=== PATIENT | male | born 1960 | race Caucasian/White ===

== ENCOUNTER 2017-06-20 11:16 | Inpatient (IN) | payer OTHER ==
[~2017-06-20] VITALS: Ht 175.3 cm; Wt 84.9 kg
--- NOTE | 2017-06-20 12:13 | PHYS DOC ---
Adult General Chief Complaint Chief Complaint: NAUSEA/VOMITING/DIARRHA HPI HPI Patient is a 56 year old male presents to the emergency department stating that he has been having diarrhea for the last week. He states that he has tried Imodium [id number] with no relief. He states that within the last 24 hours he has had 3-4 diarrhea stools with pink noted within the stool. He has also vomited 3-4 times within the last 24 hours with no blood noted. Patient states he has no appetite and cannot keep anything down. He does state that he has been slightly lightheaded and dizzy. He denies any previous history of any GI bleeds in the past. He does state he's had a hernia in the past. He states that he's been having some abdominal cramping with sharp pains that go from the right lower quadrant straight to the back. He states that he has not had any fevers no, no chills. Review of Systems Review of Systems Constitutional: Denies fever or chills [] Eyes: Denies change in visual acuity, redness, or eye pain [] HENT: Denies nasal congestion or sore throat [] Respiratory: Denies cough or shortness of breath [] Cardiovascular: No additional information not addressed in HPI [] GI: abdominal pain, nausea, vomiting, pink stools or diarrhea [] : Denies dysuria or hematuria [] Musculoskeletal: Denies back pain or joint pain [] Integument: Denies rash or skin lesions [] Neurologic: Denies headache, focal weakness or sensory changes [] Endocrine: Denies polyuria or polydipsia [] Current Medications Current Medications Current Medications Medications (Trade) Dose Ordered Sig/Rios Start Time Stop Time Status Last Admin Dose Admin Dicyclomine HCl (Bentyl) 10 mg 1X ONCE 06/20/17 12:15 06/20/17 12:16 DC 06/20/17 12:37 10 MG Info (Do NOT chart on this entry -- for MONITORING) 1 each PRN DAILY PRN 06/20/17 12:30 06/22/17 12:29 Iohexol (Omnipaque 240 Mg/ml) 50 ml 1X ONCE 06/20/17 12:30 06/20/17 12:31 DC 06/20/17 12:30 50 ML Iohexol (Omnipaque 300 Mg/ml) 75 ml 1X ONCE 06/20/17 12:30 06/20/17 12:31 DC 06/20/17 13:31 75 ML Ondansetron HCl (Zofran) 4 mg 1X ONCE 06/20/17 12:15 06/20/17 12:16 DC 06/20/17 12:36 4 MG Sodium Chloride 1,000 ml @ 1,000 mls/hr 1X ONCE 06/20/17 12:15 06/20/17 13:14 DC 06/20/17 12:36 1,000 MLS/HR Allergies Allergies Allergies Coded Allergies Type Severity Reaction Last Updated Verified aspirin Allergy Unknown 06/20/17 No Physical Exam Physical Exam Constitutional: Well developed, well nourished, no acute distress, non-toxic appearance. [] HENT: Normocephalic, atraumatic, bilateral external ears normal, oropharynx moist, no oral exudates, nose normal. [] Eyes: PERRLA, EOMI, conjunctiva normal, no discharge. [] Neck: Normal range of motion, no tenderness, supple, no stridor. [] Cardiovascular:Heart rate regular rhythm, no murmur [] Lungs & Thorax: Bilateral breath sounds clear to auscultation [] Abdomen: Bowel sounds hypoactive, soft, RUQ and RLQ tenderness, no masses, no pulsatile masses. no rebound tenderness noted, no guarding noted. Skin: Warm, dry, no erythema, no rash. [] Back: No tenderness Extremities: No tenderness, no cyanosis, no clubbing, ROM intact, no edema. [] Neurologic: Alert and oriented X 3, normal motor function, normal sensory function, no focal deficits noted. [] Psychologic: Affect normal, judgement normal, mood normal. [] Current Patient Data Vital Signs Vital Signs Date Time Temp Pulse Resp B/P (MAP) Pulse Ox O2 Delivery O2 Flow Rate FiO2 06/20/17 11:50 98.4 102 20 137/72 (93) 95 Room Air 98.4 Lab Values Laboratory Tests Test 06/20/17 12:02 06/20/17 12:25 Stool Occult Blood Negative (NEG) White Blood Count 14.5 x10^3/uL (4.0-11.0) H Red Blood Count 5.34 x10^6/uL (4.30-5.70) Hemoglobin 15.8 g/dL (13.0-17.5) Hematocrit 45.7 % (39.0-53.0) Mean Corpuscular Volume 86 fL (79-100) Mean Corpuscular Hemoglobin 30 pg (25-35) Mean Corpuscular Hemoglobin Concent 35 g/dL (31-37) Red Cell Distribution Width 12.6 % (11.5-14.5) Platelet Count 319 x10^3/uL (140-400) Neutrophils (%) (Auto) 81 % (31-73) H Lymphocytes (%) (Auto) 5 % (24-48) L Monocytes (%) (Auto) 14 % (0-9) H Eosinophils (%) (Auto) 0 % (0-3) Basophils (%) (Auto) 0 % (0-3) Neutrophils # (Auto) 11.8 x10^3uL (1.8-7.7) H Lymphocytes # (Auto) 0.6 x10^3/uL (1.0-4.8) L Monocytes # (Auto) 2.0 x10^3/uL (0.0-1.1) H Eosinophils # (Auto) 0.0 x10^3/uL (0.0-0.7) Basophils # (Auto) 0.0 x10^3/uL (0.0-0.2) Segmented Neutrophils % 80 % (35-66) H Band Neutrophils % 1 % (0-9) Lymphocytes % 10 % (24-48) L Monocytes % 9 % (0-10) Platelet Estimate Adequate (ADEQUATE) Sodium Level 134 mmol/L (136-145) L Potassium Level 4.0 mmol/L (3.5-5.1) Chloride Level 97 mmol/L (98-107) L Carbon Dioxide Level 26 mmol/L (21-32) Anion Gap 11 (6-14) Blood Urea Nitrogen 11 mg/dL (8-26) Creatinine 1.1 mg/dL (0.7-1.3) Estimated GFR (Cockcroft-Gault) 69.8 BUN/Creatinine Ratio 10 (6-20) Glucose Level 138 mg/dL (70-99) H Calcium Level 9.0 mg/dL (8.5-10.1) Total Bilirubin 0.6 mg/dL (0.2-1.0) Aspartate Amino Transferase (AST) 12 U/L (15-37) L Alanine Aminotransferase (ALT) 22 U/L (16-63) Alkaline Phosphatase 60 U/L (46-116) Total Protein 7.4 g/dL (6.4-8.2) Albumin 3.3 g/dL (3.4-5.0) L Albumin/Globulin Ratio 0.8 (1.0-1.7) L Laboratory Tests 06/20/17 12:25 Laboratory Tests 06/20/17 12:25 EKG EKG [] Radiology/Procedures Radiology/Procedures [][facility] [address] [place] [address] IMAGING REPORT Signed PATIENT: HI ELAINE ACCOUNT: [id number] : 1960 LOCATION: ER AGE: 56 SEX: M EXAM STATUS: REG ER ORD. PHYSICIAN: ED ZAVALA APRN REASON: vomting and diarrhea, abdominal pain 1 week PROCEDURE: CT ABD PELV W/ORAL&IV CONTRAST CT of the abdomen and pelvis with contrast, 06/20/2017: History: Abdominal pain, nausea and vomiting with diarrhea Multidetector CT imaging was performed following oral and IV administration of contrast. There is mild bibasilar atelectasis. The liver is unremarkable. No gallbladder abnormality is seen. The pancreas is unremarkable. There is a 3.5 cm cyst in the spleen. The kidneys are unremarkable. There is mild aortoiliac calcific plaquing without evidence of aneurysm. No abdominal or pelvic adenopathy is seen. The prostate gland is enlarged measuring 5.7 cm in width. Several prostatic calcifications are noted. There is moderate colonic mural thickening most prominent at the level of the right colon and transverse colon. No pneumatosis is evident. There is mild streaky paracolic inflammation in both paracolic gutters. A few small sigmoid diverticula are present. No focal paracolonic fluid collection is seen. The appendix is visualized and is unremarkable. The bowel loops are not dilated. The terminal ileum is unremarkable. No free air is seen in the abdomen or pelvis. There appears to be a trace amount of free fluid in the pelvis. IMPRESSION: 1. Moderate colonic mural thickening compatible with colitis. This may be infectious, although ischemia or inflammatory bowel disease cannot be excluded. 2. Mild sigmoid diverticulosis. 3. Nonspecific prostatic enlargement. PQRS Compliance Statement: One or more of the following individualized dose reduction techniques were utilized for this examination: 1. Automated exposure control 2. Adjustment of the mA and/or kV according to patient size 3. Use of iterative reconstruction technique DICTATED and SIGNED BY: MARICHUY LOREDO MD DATE: 06/20/17 [id number] CC: ED ZAVALA APRN; NO PCP ~ Course & Med Decision Making Course & Med Decision Making Pertinent Labs and Imaging studies reviewed. (See chart for details) Patient's CT results identify diverticulosis as well as colitis. Patient will be admitted into the hospital per Dr. Page. With recommendations to have a consult with GI Dr. Guzman. Patient will be provided with IV antibiotics. He' ll be nothing by mouth except for ice chips at this time. Patient was provided with lab results and CT results. [] Dragon Disclaimer Dragon Disclaimer This electronic medical record was generated, in whole or in part, using a voice recognition dictation system. Departure Departure Impression: Primary Impression: Abdominal pain Disposition: ADMITTED INPATIENT Admitting Physician: Karlee Page Condition: STABLE DE ZAVALA APRN Jun 20, 2017 12:13
[2017-06-20] MEDS ORDERED: ONDANSETRON PF 4 MG/2 ML VIAL. IV ONE (12:15)
[2017-06-20] MEDS ORDERED: DICYCLOMINE 20 MG/2 ML AMPUL. IM ONE (12:15)
[2017-06-20] MEDS ORDERED: IV NORMAL SALINE 1000ML BAG 1,000 ML IV ONE (12:15)
[2017-06-20] MEDS ORDERED: CONTRAST GIVEN MC PRN (12:30)
[2017-06-20] MEDS ORDERED: IOHEXOL 240 MG/ML 50ML VIAL. PO ONE (12:30)
[2017-06-20] MEDS ORDERED: IOHEXOL 300 MG/ML 75 ML VIAL IV ONE (12:30)
[2017-06-20 12:33] LABS: NEG OBC FOB NEG; POS OBC FOB POS
[2017-06-20 12:37] LABS: BASO % 0 % (0-3); EOS % 0 % (0-3); HEMATOCRIT 45.7 % (39.0-53.0); HEMOGLOBIN 15.8 g/dL (13.0-17.5); LYMPH # 0.6 x10^3/uL (1.0-4.8); LYMPH % 5 % (24-48); MEAN CORPUSCULAR HEMOGLOBIN 30 pg (25-35); MEAN CORPUSCULAR HGB CONC 35 g/dL (31-37); MEAN CORPUSCULAR VOLUME 86 fL (79-100); MONO % 14 % (0-9); NEUT % 81 % (31-73); PLATELET COUNT 319 x10^3/uL (140-400); RED BLOOD COUNT 5.34 x10^6/uL (4.30-5.70); RED CELL DISTRIBUTION WIDTH 12.6 % (11.5-14.5); WHITE BLOOD COUNT 14.5 x10^3/uL (4.0-11.0)
[2017-06-20 12:56] LABS: CREATININE 1.1 mg/dL (0.7-1.3); GFR 69.8
[2017-06-20 13:00] LABS: ALBUMIN 3.3 g/dL (3.4-5.0); ALBUMIN/GLOBULIN RATIO 0.8 (1.0-1.7); TOTAL BILIRUBIN 0.6 mg/dL (0.2-1.0); TOTAL PROTEIN 7.4 g/dL (6.4-8.2)
[2017-06-20 13:57] LABS: PLT ESTIMATE ADEQUATE (ADEQUATE)
--- NOTE | 2017-06-20 13:59 | RAD ---
CT of the abdomen and pelvis with contrast, 06/20/2017: History: Abdominal pain, nausea and vomiting with diarrhea Multidetector CT imaging was performed following oral and IV administration of contrast. There is mild bibasilar atelectasis. The liver is unremarkable. No gallbladder abnormality is seen. The pancreas is unremarkable. There is a 3.5 cm cyst in the spleen. The kidneys are unremarkable. There is mild aortoiliac calcific plaquing without evidence of aneurysm. No abdominal or pelvic adenopathy is seen. The prostate gland is enlarged measuring 5.7 cm in width. Several prostatic calcifications are noted. There is moderate colonic mural thickening most prominent at the level of the right colon and transverse colon. No pneumatosis is evident. There is mild streaky paracolic inflammation in both paracolic gutters. A few small sigmoid diverticula are present. No focal paracolonic fluid collection is seen. The appendix is visualized and is unremarkable. The bowel loops are not dilated. The terminal ileum is unremarkable. No free air is seen in the abdomen or pelvis. There appears to be a trace amount of free fluid in the pelvis. IMPRESSION: 1. Moderate colonic mural thickening compatible with colitis. This may be infectious, although ischemia or inflammatory bowel disease cannot be excluded. 2. Mild sigmoid diverticulosis. 3. Nonspecific prostatic enlargement. PQRS Compliance Statement: One or more of the following individualized dose reduction techniques were utilized for this examination: 1. Automated exposure control 2. Adjustment of the mA and/or kV according to patient size 3. Use of iterative reconstruction technique
[2017-06-20] MEDS ORDERED: ONDANSETRON PF 4 MG/2 ML VIAL. IV PRN (14:45)
--- NOTE | 2017-06-20 14:53 | ACF ---
Admit Criteria Forms Admit Criteria Forms Admit Criteria Forms ABDOMINAL PAIN Clinical Indications for Admission to Inpatient Care ( [place]/check or initial the applicable condition/criteria): Admission is indicated for ANY ONE of the following (1)(2)(3)(4)(5)(6): [ ]I. Surgery needed that cannot be performed on ambulatory basis [ ]II. Peritoneal signs present (eg, rebound tenderness, rigidity) [ ]III. Evaluation requires patient to not eat or drink for extended period ( eg, more than 24 hours). [X ]IV. Inpatient admission required[B] rather than observation care (see Abdominal Pain: Observation Care guideline as appropriate) because of ANY ONE of the following(7)(8)(9): [ ] a) Hemodynamic instability [ ]b) Severe pain requiring acute inpatient management [X ]c) Identification of etiology or finding that requires inpatient care (eg, aortic dissection, free air,bowel ischemia)(10) [ ]d) Absent bowel sounds with complete ileus (11) [ ]e) Signs of intestinal obstruction[C] [ ]f) Suspected toxic megacolon [ ]g) Severe electrolyte abnormalities requiring inpatient care [ ]h) High fever or infection requiring inpatient admission as indicated by ANY ONE of the following (12)(13): [ ]i) Appropriate outpatient or observation care antimicrobial treatment unavailable, not effective, or not feasible [ ]ii) Documented bacteremia [ ]iii) Temperature greater than 104.9 degrees F (40.5 degrees C) (oral) [ ]iv) Temperature greater than 103.1 degrees F (39.5 degrees C) ( oral) or less than 96.8 degrees F (36 degrees C) (rectal) that does not respond to all emergency treatment measures [ ]i) IV fluid required rather than oral rehydration to replace significant ongoing (eg, for greater than 24 hours) losses (greater than 3 L/m2 per day)(14)(15) [ ]j) Percutaneous or open drainage (eg, abscess, biliary tract) procedures [ ]k) Parenteral nutrition regimen that must be implemented on inpatient basis [ ]l) Other condition, treatment, or monitoring requiring inpatient admission Extended stay beyond goal length of stay may be needed for (1)(3)(4)(10)(16): [ ]a) Surgery (e.g., colectomy, revascularization procedure) [ ]b) Persistent abdominal pain with suspected intra-abdominal process [ ]c) Diagnosed condition requiring continued stay (e.g., pancreatitis, complicated diverticulitis) The original [facility] [employer] content created by [facility] has been revised. The portions of the content which have been revised are identified through the use of italic text, and [facility] has neither reviewed nor approved the modified material.All other unmodified content is copyright [facility]. Please see references footnoted in the original [facility] [employer] edition 2014 ROBIN DALY Jun 20, 2017 14:53
[2017-06-20] MEDS ORDERED: CIPROFLOXACIN 400MG PREMIX 200 ML IV ONE (15:00)
[2017-06-20] MEDS: IV NORMAL SALINE 1000ML BAG 1,000 ML IV SCH ×2 (15:03→22:50)
--- NOTE | 2017-06-20 15:56 | PDOC2 ---
GI CONSULT Reason For Consult: Abd pain HPI: HPI: 56 y/o male admitted through ER. Has been ill for 1 week w/ diarrhea (1-2 watery stools every hour, keeps him awake) w/ lower abdominal cramping ( improved after stooling or passing gas) and n/v. Stools have looked yellow, white, mucousy, and occasionally pink. Tried Pepto and Imodium w/o improvement. Recently started on atbx for dental infection, also traveled to [place] a couple months ago to visit family. Rare reflux when upset/stressed. No previous EGD or colonoscopy. No NSAID use. Labs significant for WBC 14.5 and fecal occult negative. CT shows diffuse mural thickening c/w colitis, also note sigmoid diverticulosis. Started on Flagyl, also given Bentyl. Stool culture ordered. PMH: PMH: hemorrhoids, diverticulosis, bilateral inguinal hernia repair FH: Family History: No pertinent hx (denies GI cancers) Social History: Smoke: No ALCOHOL: occassional Drugs: None ROS: GEN: Denies fevers, chills, sweats HEENT: Denies blurred vision, sore throat CV: Denies chest pain RESP: Denies shortness of air, cough GI: Per HPI : Denies hematuria, dysuria ENDO: Denies weight changes NEURO: Denies confusion, dizziness MSK: Denies weakness, joint pain/swelling SKIN: Denies jaundice, pruritus Vitals: Vitals: Vital Signs Date Time Temp Pulse Resp B/P (MAP) Pulse Ox O2 Delivery O2 Flow Rate FiO2 06/20/17 14:25 93 119/72 (88) 06/20/17 14:06 97 Room Air 06/20/17 13:25 20 06/20/17 11:50 98.4 98.4 Labs: Labs: Laboratory Tests Test 06/20/17 12:02 06/20/17 12:25 Stool Occult Blood Negative (NEG) White Blood Count 14.5 x10^3/uL (4.0-11.0) Red Blood Count 5.34 x10^6/uL (4.30-5.70) Hemoglobin 15.8 g/dL (13.0-17.5) Hematocrit 45.7 % (39.0-53.0) Mean Corpuscular Volume 86 fL (79-100) Mean Corpuscular Hemoglobin 30 pg (25-35) Mean Corpuscular Hemoglobin Concent 35 g/dL (31-37) Red Cell Distribution Width 12.6 % (11.5-14.5) Platelet Count 319 x10^3/uL (140-400) Neutrophils (%) (Auto) 81 % (31-73) Lymphocytes (%) (Auto) 5 % (24-48) Monocytes (%) (Auto) 14 % (0-9) Eosinophils (%) (Auto) 0 % (0-3) Basophils (%) (Auto) 0 % (0-3) Neutrophils # (Auto) 11.8 x10^3uL (1.8-7.7) Lymphocytes # (Auto) 0.6 x10^3/uL (1.0-4.8) Monocytes # (Auto) 2.0 x10^3/uL (0.0-1.1) Eosinophils # (Auto) 0.0 x10^3/uL (0.0-0.7) Basophils # (Auto) 0.0 x10^3/uL (0.0-0.2) Segmented Neutrophils % 80 % (35-66) Band Neutrophils % 1 % (0-9) Lymphocytes % 10 % (24-48) Monocytes % 9 % (0-10) Platelet Estimate Adequate (ADEQUATE) Sodium Level 134 mmol/L (136-145) Potassium Level 4.0 mmol/L (3.5-5.1) Chloride Level 97 mmol/L (98-107) Carbon Dioxide Level 26 mmol/L (21-32) Anion Gap 11 (6-14) Blood Urea Nitrogen 11 mg/dL (8-26) Creatinine 1.1 mg/dL (0.7-1.3) Estimated GFR (Cockcroft-Gault) 69.8 BUN/Creatinine Ratio 10 (6-20) Glucose Level 138 mg/dL (70-99) Calcium Level 9.0 mg/dL (8.5-10.1) Total Bilirubin 0.6 mg/dL (0.2-1.0) Aspartate Amino Transf (AST/SGOT) 12 U/L (15-37) Alanine Aminotransferase (ALT/SGPT) 22 U/L (16-63) Alkaline Phosphatase 60 U/L (46-116) Total Protein 7.4 g/dL (6.4-8.2) Albumin 3.3 g/dL (3.4-5.0) Albumin/Globulin Ratio 0.8 (1.0-1.7) Allergies: Coded Allergies: aspirin (Unverified Allergy, Unknown, 06/20/17) "REALLY DEHYDRATED" Medications: Current Medications Medications (Trade) Dose Ordered Sig/Rios Route PRN Reason Start Time Stop Time Status Last Admin Dose Admin Sodium Chloride 1,000 ml @ 1,000 mls/hr 1X ONCE IV 06/20/17 12:15 06/20/17 13:14 DC 06/20/17 12:36 Dicyclomine HCl (Bentyl) 10 mg 1X ONCE IM 06/20/17 12:15 06/20/17 12:16 DC 06/20/17 12:37 Ondansetron HCl (Zofran) 4 mg 1X ONCE IV 06/20/17 12:15 06/20/17 12:16 DC 06/20/17 12:36 Iohexol (Omnipaque 300 Mg/ml) 75 ml 1X ONCE IV 06/20/17 12:30 06/20/17 12:31 DC 06/20/17 13:31 Iohexol (Omnipaque 240 Mg/ml) 50 ml 1X ONCE PO 06/20/17 12:30 06/20/17 12:31 DC 06/20/17 12:30 Sodium Chloride 1,000 ml @ 125 mls/hr Q8H IV 06/20/17 14:37 06/21/17 14:36 06/20/17 15:03 Metronidazole 100 ml @ 100 mls/hr 1X ONCE IV 06/20/17 14:45 06/20/17 15:44 DC 06/20/17 15:03 Imaging: Imaging: CT A/P w/ oral and IV contrast IMPRESSION: 1. Moderate colonic mural thickening compatible with colitis. This may be infectious, although ischemia or inflammatory bowel disease cannot be excluded. 2. Mild sigmoid diverticulosis. 3. Nonspecific prostatic enlargement. PE: GEN: NAD HEENT: Atraumatic, PERRL LUNGS: CTAB HEART: RRR ABD: hyperactive BS, S/ND, not particularly tender EXTREMITY: No edema SKIN: No rashes, no jaundice NEURO/PSYCH: A & O 3 A/P: A/P: Diarrhea, n/v, abd pain -onset 1 week ago, possibly precipitated by atbx use Abnormal CT A/P -c/w colitis Leukocytosis CRC screen -no previous colonoscopy -- Stool culture ordered, add C Diff considering atbx use. Consider vanc if not improving w/ metronidazole. Try clear liquids. Screening colonoscopy as outpt. TANVIR JOHNSON Jun 20, 2017 15:56
[2017-06-20 19:00] VITALS: BP 112/62
[2017-06-20] MEDS: DICYCLOMINE HCL 10 MG CAPSULE PO PRN (20:34)
[2017-06-20] MEDS: SIMETHICONE 80 MG TAB.CHEW PO PRN (22:49)
[2017-06-20 23:00] VITALS: BP 107/59
--- NOTE | 2017-06-21 00:01 | HP ---
ADMIT DATE: 06/20/2017 CHIEF COMPLAINT: Nausea, vomiting, diarrhea. HISTORY OF PRESENT ILLNESS: The patient is a pleasant 56-year-old healthy male who presented with nausea, vomiting, diarrhea. We did a CAT scan in the ER showing colitis. I have discussed the case with the ER physician. We are going to admit the patient with consultation to GI and on IV Cipro and IV Levaquin. PAST MEDICAL HISTORY: Benign. ALLERGIES: ASPIRIN. FAMILY HISTORY: He denies any colon cancer in the family. SOCIAL HISTORY: He does not drink, smoke or take drugs. He works at [employer]. MEDICATIONS: Reviewed, please refer to the MRAD. REVIEW OF SYSTEMS: GENERAL: No history of weight change, weakness or fevers. SKIN: No bruising, hair changes or rashes. EYES: No blurred, double or loss of vision. NOSE AND THROAT: No history of nosebleeds, hoarseness or sore throat. HEART: No history of palpitations, chest pain or shortness of breath on exertion. LUNGS: Denies cough, hemoptysis, wheezing or shortness of breath. GASTROINTESTINAL: Denies changes in appetite or constipation. He complains of abdominal pain. GENITOURINARY: No history of frequency, urgency, hesitancy or nocturia. NEUROLOGIC: Denies history of numbness, tingling, tremor or weakness. PSYCHIATRIC: No history of panic, anxiety or depression. ENDOCRINE: No history of heat or cold intolerance, polyuria or polydipsia. EXTREMITIES: Denies muscle weakness, joint pain, pain on walking or stiffness. PHYSICAL EXAMINATION: VITAL SIGNS: Temperature afebrile, pulse 62, respirations 18, blood pressure 119/72. GENERAL: He is alert, cooperative. HEART: Normal S1, S2. LUNGS: Clear. ABDOMEN: Soft, decreased bowel sounds, tender. EXTREMITIES: Trace edema. SKIN: No rashes. PSYCHIATRIC: He is anxious. VASCULAR: Good capillary refill. ENDOCRINE: No thyromegaly. LYMPHATICS: No cervical nodes. HEMATOPOIETIC: No bruising. LABORATORY DATA: White count 14, hemoglobin 15.8, platelets 319. Electrolytes: Sodium 134, potassium 4, chloride 97, bicarbonate 26, BUN 11, creatinine 1, glucose 130. ASSESSMENT AND PLAN: Colitis. The patient has been admitted. We will consult Gastroenterology. IV Cipro, IV Flagyl. Continue his home medicines. ARONL Delroy SORTO DO DR: Ryan JOB#: [id number] / [id number]
[2017-06-21] MEDS: HYDROcodone/APAP 5/325MG 1 TAB TABLET PO PRN ×4 (02:14→20:47)
[2017-06-21 05:04] LABS: BASO % 0 % (0-3); EOS % 1 % (0-3); HEMATOCRIT 38.9 % (39.0-53.0); HEMOGLOBIN 13.2 g/dL (13.0-17.5); LYMPH % 9 % (24-48); MEAN CORPUSCULAR HEMOGLOBIN 29 pg (25-35); MEAN CORPUSCULAR HGB CONC 34 g/dL (31-37); MEAN CORPUSCULAR VOLUME 86 fL (79-100); MONO % 12 % (0-9); NEUT % 77 % (31-73); PLATELET COUNT 286 x10^3/uL (140-400); RED BLOOD COUNT 4.53 x10^6/uL (4.30-5.70); RED CELL DISTRIBUTION WIDTH 12.8 % (11.5-14.5); WHITE BLOOD COUNT 11.1 x10^3/uL (4.0-11.0)
[2017-06-21 05:33] LABS: CALCIUM 8.4 mg/dL (8.5-10.1); CREATININE 0.7 mg/dL (0.7-1.3); GFR 117.5; POTASSIUM 3.6 mmol/L (3.5-5.1)
[2017-06-21 06:49] VITALS: BP 98/66
[2017-06-21 07:00] VITALS: BP 93/64
[2017-06-21] MEDS: DICYCLOMINE HCL 10 MG CAPSULE PO PRN ×3 (08:36→20:49)
[2017-06-21] MEDS: SIMETHICONE 80 MG TAB.CHEW PO PRN ×2 (08:36→20:48)
[2017-06-21] MEDS ORDERED: CIPROFLOXACIN 400MG PREMIX 200 ML IV SCH (09:00)
[2017-06-21] MEDS: IV NORMAL SALINE 1000ML BAG 1,000 ML IV SCH (10:37)
[2017-06-21 11:22] VITALS: BP 113/62
--- NOTE | 2017-06-21 11:32 | PDOC ---
G I PROGRESS NOTE Subjective No nausea or vomiting today. Tolerating clears. Still with diarrhea. Physical Exam Lungs clear. RRR Abdomen soft with mild diffuse tenderness. Review of Relevant I have reviewed the following items sharee (where applicable) has been applied. Labs Laboratory Tests Test 06/20/17 12:02 06/20/17 12:25 06/21/17 04:10 Stool Occult Blood Negative (NEG) White Blood Count 14.5 x10^3/uL (4.0-11.0) 11.1 x10^3/uL (4.0-11.0) Red Blood Count 5.34 x10^6/uL (4.30-5.70) 4.53 x10^6/uL (4.30-5.70) Hemoglobin 15.8 g/dL (13.0-17.5) 13.2 g/dL (13.0-17.5) Hematocrit 45.7 % (39.0-53.0) 38.9 % (39.0-53.0) Mean Corpuscular Volume 86 fL (79-100) 86 fL (79-100) Mean Corpuscular Hemoglobin 30 pg (25-35) 29 pg (25-35) Mean Corpuscular Hemoglobin Concent 35 g/dL (31-37) 34 g/dL (31-37) Red Cell Distribution Width 12.6 % (11.5-14.5) 12.8 % (11.5-14.5) Platelet Count 319 x10^3/uL (140-400) 286 x10^3/uL (140-400) Neutrophils (%) (Auto) 81 % (31-73) 77 % (31-73) Lymphocytes (%) (Auto) 5 % (24-48) 9 % (24-48) Monocytes (%) (Auto) 14 % (0-9) 12 % (0-9) Eosinophils (%) (Auto) 0 % (0-3) 1 % (0-3) Basophils (%) (Auto) 0 % (0-3) 0 % (0-3) Neutrophils # (Auto) 11.8 x10^3uL (1.8-7.7) 8.6 x10^3uL (1.8-7.7) Lymphocytes # (Auto) 0.6 x10^3/uL (1.0-4.8) 1.0 x10^3/uL (1.0-4.8) Monocytes # (Auto) 2.0 x10^3/uL (0.0-1.1) 1.3 x10^3/uL (0.0-1.1) Eosinophils # (Auto) 0.0 x10^3/uL (0.0-0.7) 0.1 x10^3/uL (0.0-0.7) Basophils # (Auto) 0.0 x10^3/uL (0.0-0.2) 0.0 x10^3/uL (0.0-0.2) Segmented Neutrophils % 80 % (35-66) Band Neutrophils % 1 % (0-9) Lymphocytes % 10 % (24-48) Monocytes % 9 % (0-10) Platelet Estimate Adequate (ADEQUATE) Sodium Level 134 mmol/L (136-145) 138 mmol/L (136-145) Potassium Level 4.0 mmol/L (3.5-5.1) 3.6 mmol/L (3.5-5.1) Chloride Level 97 mmol/L (98-107) 103 mmol/L (98-107) Carbon Dioxide Level 26 mmol/L (21-32) 25 mmol/L (21-32) Anion Gap 11 (6-14) 10 (6-14) Blood Urea Nitrogen 11 mg/dL (8-26) 9 mg/dL (8-26) Creatinine 1.1 mg/dL (0.7-1.3) 0.7 mg/dL (0.7-1.3) Estimated GFR (Cockcroft-Gault) 69.8 117.5 BUN/Creatinine Ratio 10 (6-20) Glucose Level 138 mg/dL (70-99) 132 mg/dL (70-99) Calcium Level 9.0 mg/dL (8.5-10.1) 8.4 mg/dL (8.5-10.1) Total Bilirubin 0.6 mg/dL (0.2-1.0) Aspartate Amino Transf (AST/SGOT) 12 U/L (15-37) Alanine Aminotransferase (ALT/SGPT) 22 U/L (16-63) Alkaline Phosphatase 60 U/L (46-116) Total Protein 7.4 g/dL (6.4-8.2) Albumin 3.3 g/dL (3.4-5.0) Albumin/Globulin Ratio 0.8 (1.0-1.7) Laboratory Tests Test 06/20/17 12:02 06/20/17 12:25 06/21/17 04:10 Stool Occult Blood Negative (NEG) White Blood Count 14.5 x10^3/uL (4.0-11.0) 11.1 x10^3/uL (4.0-11.0) Red Blood Count 5.34 x10^6/uL (4.30-5.70) 4.53 x10^6/uL (4.30-5.70) Hemoglobin 15.8 g/dL (13.0-17.5) 13.2 g/dL (13.0-17.5) Hematocrit 45.7 % (39.0-53.0) 38.9 % (39.0-53.0) Mean Corpuscular Volume 86 fL (79-100) 86 fL (79-100) Mean Corpuscular Hemoglobin 30 pg (25-35) 29 pg (25-35) Mean Corpuscular Hemoglobin Concent 35 g/dL (31-37) 34 g/dL (31-37) Red Cell Distribution Width 12.6 % (11.5-14.5) 12.8 % (11.5-14.5) Platelet Count 319 x10^3/uL (140-400) 286 x10^3/uL (140-400) Neutrophils (%) (Auto) 81 % (31-73) 77 % (31-73) Lymphocytes (%) (Auto) 5 % (24-48) 9 % (24-48) Monocytes (%) (Auto) 14 % (0-9) 12 % (0-9) Eosinophils (%) (Auto) 0 % (0-3) 1 % (0-3) Basophils (%) (Auto) 0 % (0-3) 0 % (0-3) Neutrophils # (Auto) 11.8 x10^3uL (1.8-7.7) 8.6 x10^3uL (1.8-7.7) Lymphocytes # (Auto) 0.6 x10^3/uL (1.0-4.8) 1.0 x10^3/uL (1.0-4.8) Monocytes # (Auto) 2.0 x10^3/uL (0.0-1.1) 1.3 x10^3/uL (0.0-1.1) Eosinophils # (Auto) 0.0 x10^3/uL (0.0-0.7) 0.1 x10^3/uL (0.0-0.7) Basophils # (Auto) 0.0 x10^3/uL (0.0-0.2) 0.0 x10^3/uL (0.0-0.2) Segmented Neutrophils % 80 % (35-66) Band Neutrophils % 1 % (0-9) Lymphocytes % 10 % (24-48) Monocytes % 9 % (0-10) Platelet Estimate Adequate (ADEQUATE) Sodium Level 134 mmol/L (136-145) 138 mmol/L (136-145) Potassium Level 4.0 mmol/L (3.5-5.1) 3.6 mmol/L (3.5-5.1) Chloride Level 97 mmol/L (98-107) 103 mmol/L (98-107) Carbon Dioxide Level 26 mmol/L (21-32) 25 mmol/L (21-32) Anion Gap 11 (6-14) 10 (6-14) Blood Urea Nitrogen 11 mg/dL (8-26) 9 mg/dL (8-26) Creatinine 1.1 mg/dL (0.7-1.3) 0.7 mg/dL (0.7-1.3) Estimated GFR (Cockcroft-Gault) 69.8 117.5 BUN/Creatinine Ratio 10 (6-20) Glucose Level 138 mg/dL (70-99) 132 mg/dL (70-99) Calcium Level 9.0 mg/dL (8.5-10.1) 8.4 mg/dL (8.5-10.1) Total Bilirubin 0.6 mg/dL (0.2-1.0) Aspartate Amino Transf (AST/SGOT) 12 U/L (15-37) Alanine Aminotransferase (ALT/SGPT) 22 U/L (16-63) Alkaline Phosphatase 60 U/L (46-116) Total Protein 7.4 g/dL (6.4-8.2) Albumin 3.3 g/dL (3.4-5.0) Albumin/Globulin Ratio 0.8 (1.0-1.7) C.diff assay pending. Medications Current Medications Sodium Chloride 1,000 ml @ 1,000 mls/hr 1X ONCE IV Last administered on 12:36; Start 06/20/17 at 12:15; Stop 06/20/17 at 13:14; Status DC Dicyclomine HCl (Bentyl) 10 mg 1X ONCE IM Last administered on 06/20/17 12:37 ; Start 06/20/17 at 12:15; Stop 06/20/17 at 12:16; Status DC Ondansetron HCl (Zofran) 4 mg 1X ONCE IV Last administered on 06/20/17 12:36 ; Start 06/20/17 at 12:15; Stop 06/20/17 at 12:16; Status DC Iohexol (Omnipaque 300 Mg/ml) 75 ml 1X ONCE IV Last administered on 06/20/17 13:31; Start 06/20/17 at 12:30; Stop 06/20/17 at 12:31; Status DC Iohexol (Omnipaque 240 Mg/ml) 50 ml 1X ONCE PO Last administered on 06/20/17 12:30; Start 06/20/17 at 12:30; Stop 06/20/17 at 12:31; Status DC Info (Do NOT chart on this entry -- for MONITORING) 1 each PRN DAILY PRN MC SEE COMMENTS; Start 06/20/17 at 12:30; Stop 06/22/17 at 12:29 Ondansetron HCl (Zofran) 4 mg PRN Q8HRS PRN IV NAUSEA/VOMITING; Start 06/20/17 at 14:45; Stop 06/21/17 at 14:44 Sodium Chloride 1,000 ml @ 125 mls/hr Q8H IV Last administered on 06/21/17 10 :37; Start 06/20/17 at 14:37; Stop 06/21/17 at 14:36 Dicyclomine HCl (Bentyl) 10 mg QID PRN PO cramping Last administered on 08:36; Start 06/20/17 at 14:45 Metronidazole 100 ml @ 100 mls/hr Q8HRS IV Last administered on 06/21/17 04: 46; Start 06/20/17 at 22:00 Metronidazole 100 ml @ 100 mls/hr 1X ONCE IV Last administered on 06/20/17 15:03; Start 06/20/17 at 14:45; Stop 06/20/17 at 15:44; Status DC Simethicone (Gas-X) 80 mg PRN AFTMEALHC PRN PO GAS / BLOATING Last administered on 06/21/17 08:36; Start 06/20/17 at 22:00 Acetaminophen/ Hydrocodone Bitart (Lortab 5/325) 1 tab PRN Q4HRS PRN PO MODERATE PAIN Last administered on 06/21/17 02:14; Start 06/20/17 at 22:00 Vitals/I & O Vital Sign - Last 24 Hours 06/20/17 06/20/17 06/20/17 06/20/17 11:50 12:24 12:55 13:25 Temp 98.4 98.4 Pulse 102 106 86 92 Resp 20 20 B/P (MAP) 137/72 (93) 136/63 (87) 127/72 (90) 129/72 (91) Pulse Ox 95 97 O2 Delivery Room Air Room Air 06/20/17 06/20/17 06/20/17 06/20/17 14:06 14:25 15:05 15:25 Pulse 96 93 92 98 B/P (MAP) 123/59 (80) 119/72 (88) 123/72 (89) 129/73 (91) Pulse Ox 97 96 97 O2 Delivery Room Air Room Air Room Air 06/20/17 06/20/17 06/20/17 06/21/17 19:00 19:54 23:00 02:14 Temp 97.7 98.6 97.7 98.6 Pulse 91 85 Resp 20 20 18 B/P (MAP) 112/62 (79) 107/59 (75) Pulse Ox 95 97 97 O2 Delivery Room Air Room Air Room Air Room Air 06/21/17 06/21/17 06/21/17 06:49 07:00 11:22 Temp 98.0 98.4 98.2 98.0 98.4 98.2 Pulse 72 78 85 Resp 18 18 20 B/P (MAP) 98/66 (77) 93/64 (74) 113/62 (79) Pulse Ox 97 96 94 O2 Delivery Room Air Room Air Room Air Intake and Output 06/20/17 06/20/17 06/21/17 15:00 23:00 07:00 Intake Total 1000 ml 1910 ml 510 ml Balance 1000 ml 1910 ml 510 ml Problem List Problems Medical Problems: (1) Abdominal pain Status: Acute Assessment Diarrhea; history favors C.diff. Plan of Care: Continue current Tx, Mgmt Plan of Care Note Add po vancomycin. Await pending stool studies. SYLVIE SINCLAIR MD Jun 21, 2017 11:32
[2017-06-21] MEDS ORDERED: DOCUSATE SODIUM 100 MG CAPSULE. PO PRN (13:00)
[2017-06-21] MEDS ORDERED: hydrALAZINE 20 MG/ML VIAL. IVP PRN (13:00)
[2017-06-21] MEDS ORDERED: ACETAMINOPHEN 325 MG TABLET. PO PRN (13:00)
[2017-06-21] MEDS ORDERED: ONDANSETRON PF 4 MG/2 ML VIAL. IV PRN (13:00)
[2017-06-21] MEDS ORDERED: MORPHINE SULFATE 4 MG/ML DISP.SYRIN. IV PRN (13:00)
[2017-06-21] MEDS ORDERED: traMADol 50 MG TABLET PO PRN (13:00)
--- NOTE | 2017-06-21 13:00 | PDOC ---
PROGRESS NOTES Chief Complaint Chief Complaint Diarrhea, n/v, abd pain, need to rule out cdiff SIRS with Leukocytosis recent abx with dental work low albumin, no malnutrition plan: fu with gi add vanco as per gi on cipro, flagyl iv, consider dc soon ivf clear liquid diet labs tmr pain control gi , dvt ppx History of Present Illness History of Present Illness ROS: no fever, chills, sob or chest pain no N/V cont abd pain, with multiple diarrhea wbc better, cdiff pending recent abx post dental work Vitals Vitals Vital Signs Date Time Temp Pulse Resp B/P (MAP) Pulse Ox O2 Delivery O2 Flow Rate FiO2 06/21/17 11:22 98.2 85 20 113/62 (79) 94 Room Air 98.2 Physical Exam General: Alert, Oriented X3, Cooperative Heart: Regular rate, Normal S1, Normal S2 Lungs: Clear Abdomen: Normal bowel sounds, Soft, Other (lower abd mild tenderness) Extremities: No clubbing, No cyanosis Skin: No rashes Labs LABS Laboratory Tests Test 06/21/17 04:10 White Blood Count 11.1 x10^3/uL (4.0-11.0) Red Blood Count 4.53 x10^6/uL (4.30-5.70) Hemoglobin 13.2 g/dL (13.0-17.5) Hematocrit 38.9 % (39.0-53.0) Mean Corpuscular Volume 86 fL (79-100) Mean Corpuscular Hemoglobin 29 pg (25-35) Mean Corpuscular Hemoglobin Concent 34 g/dL (31-37) Red Cell Distribution Width 12.8 % (11.5-14.5) Platelet Count 286 x10^3/uL (140-400) Neutrophils (%) (Auto) 77 % (31-73) Lymphocytes (%) (Auto) 9 % (24-48) Monocytes (%) (Auto) 12 % (0-9) Eosinophils (%) (Auto) 1 % (0-3) Basophils (%) (Auto) 0 % (0-3) Neutrophils # (Auto) 8.6 x10^3uL (1.8-7.7) Lymphocytes # (Auto) 1.0 x10^3/uL (1.0-4.8) Monocytes # (Auto) 1.3 x10^3/uL (0.0-1.1) Eosinophils # (Auto) 0.1 x10^3/uL (0.0-0.7) Basophils # (Auto) 0.0 x10^3/uL (0.0-0.2) Sodium Level 138 mmol/L (136-145) Potassium Level 3.6 mmol/L (3.5-5.1) Chloride Level 103 mmol/L (98-107) Carbon Dioxide Level 25 mmol/L (21-32) Anion Gap 10 (6-14) Blood Urea Nitrogen 9 mg/dL (8-26) Creatinine 0.7 mg/dL (0.7-1.3) Estimated GFR (Cockcroft-Gault) 117.5 Glucose Level 132 mg/dL (70-99) Calcium Level 8.4 mg/dL (8.5-10.1) Assessment and Plan Assessmemt and Plan Problems Medical Problems: (1) Abdominal pain Status: Acute Problems: Comment Review of Relevant I have reviewed the following items sharee (where applicable) has been applied. Labs Laboratory Tests Test 06/20/17 12:02 06/20/17 12:25 06/21/17 04:10 Stool Occult Blood Negative (NEG) White Blood Count 14.5 x10^3/uL (4.0-11.0) 11.1 x10^3/uL (4.0-11.0) Red Blood Count 5.34 x10^6/uL (4.30-5.70) 4.53 x10^6/uL (4.30-5.70) Hemoglobin 15.8 g/dL (13.0-17.5) 13.2 g/dL (13.0-17.5) Hematocrit 45.7 % (39.0-53.0) 38.9 % (39.0-53.0) Mean Corpuscular Volume 86 fL (79-100) 86 fL (79-100) Mean Corpuscular Hemoglobin 30 pg (25-35) 29 pg (25-35) Mean Corpuscular Hemoglobin Concent 35 g/dL (31-37) 34 g/dL (31-37) Red Cell Distribution Width 12.6 % (11.5-14.5) 12.8 % (11.5-14.5) Platelet Count 319 x10^3/uL (140-400) 286 x10^3/uL (140-400) Neutrophils (%) (Auto) 81 % (31-73) 77 % (31-73) Lymphocytes (%) (Auto) 5 % (24-48) 9 % (24-48) Monocytes (%) (Auto) 14 % (0-9) 12 % (0-9) Eosinophils (%) (Auto) 0 % (0-3) 1 % (0-3) Basophils (%) (Auto) 0 % (0-3) 0 % (0-3) Neutrophils # (Auto) 11.8 x10^3uL (1.8-7.7) 8.6 x10^3uL (1.8-7.7) Lymphocytes # (Auto) 0.6 x10^3/uL (1.0-4.8) 1.0 x10^3/uL (1.0-4.8) Monocytes # (Auto) 2.0 x10^3/uL (0.0-1.1) 1.3 x10^3/uL (0.0-1.1) Eosinophils # (Auto) 0.0 x10^3/uL (0.0-0.7) 0.1 x10^3/uL (0.0-0.7) Basophils # (Auto) 0.0 x10^3/uL (0.0-0.2) 0.0 x10^3/uL (0.0-0.2) Segmented Neutrophils % 80 % (35-66) Band Neutrophils % 1 % (0-9) Lymphocytes % 10 % (24-48) Monocytes % 9 % (0-10) Platelet Estimate Adequate (ADEQUATE) Sodium Level 134 mmol/L (136-145) 138 mmol/L (136-145) Potassium Level 4.0 mmol/L (3.5-5.1) 3.6 mmol/L (3.5-5.1) Chloride Level 97 mmol/L (98-107) 103 mmol/L (98-107) Carbon Dioxide Level 26 mmol/L (21-32) 25 mmol/L (21-32) Anion Gap 11 (6-14) 10 (6-14) Blood Urea Nitrogen 11 mg/dL (8-26) 9 mg/dL (8-26) Creatinine 1.1 mg/dL (0.7-1.3) 0.7 mg/dL (0.7-1.3) Estimated GFR (Cockcroft-Gault) 69.8 117.5 BUN/Creatinine Ratio 10 (6-20) Glucose Level 138 mg/dL (70-99) 132 mg/dL (70-99) Calcium Level 9.0 mg/dL (8.5-10.1) 8.4 mg/dL (8.5-10.1) Total Bilirubin 0.6 mg/dL (0.2-1.0) Aspartate Amino Transf (AST/SGOT) 12 U/L (15-37) Alanine Aminotransferase (ALT/SGPT) 22 U/L (16-63) Alkaline Phosphatase 60 U/L (46-116) Total Protein 7.4 g/dL (6.4-8.2) Albumin 3.3 g/dL (3.4-5.0) Albumin/Globulin Ratio 0.8 (1.0-1.7) Laboratory Tests Test 06/21/17 04:10 White Blood Count 11.1 x10^3/uL (4.0-11.0) Red Blood Count 4.53 x10^6/uL (4.30-5.70) Hemoglobin 13.2 g/dL (13.0-17.5) Hematocrit 38.9 % (39.0-53.0) Mean Corpuscular Volume 86 fL (79-100) Mean Corpuscular Hemoglobin 29 pg (25-35) Mean Corpuscular Hemoglobin Concent 34 g/dL (31-37) Red Cell Distribution Width 12.8 % (11.5-14.5) Platelet Count 286 x10^3/uL (140-400) Neutrophils (%) (Auto) 77 % (31-73) Lymphocytes (%) (Auto) 9 % (24-48) Monocytes (%) (Auto) 12 % (0-9) Eosinophils (%) (Auto) 1 % (0-3) Basophils (%) (Auto) 0 % (0-3) Neutrophils # (Auto) 8.6 x10^3uL (1.8-7.7) Lymphocytes # (Auto) 1.0 x10^3/uL (1.0-4.8) Monocytes # (Auto) 1.3 x10^3/uL (0.0-1.1) Eosinophils # (Auto) 0.1 x10^3/uL (0.0-0.7) Basophils # (Auto) 0.0 x10^3/uL (0.0-0.2) Sodium Level 138 mmol/L (136-145) Potassium Level 3.6 mmol/L (3.5-5.1) Chloride Level 103 mmol/L (98-107) Carbon Dioxide Level 25 mmol/L (21-32) Anion Gap 10 (6-14) Blood Urea Nitrogen 9 mg/dL (8-26) Creatinine 0.7 mg/dL (0.7-1.3) Estimated GFR (Cockcroft-Gault) 117.5 Glucose Level 132 mg/dL (70-99) Calcium Level 8.4 mg/dL (8.5-10.1) Medications Current Medications Sodium Chloride 1,000 ml @ 1,000 mls/hr 1X ONCE IV Last administered on 12:36; Start 06/20/17 at 12:15; Stop 06/20/17 at 13:14; Status DC Dicyclomine HCl (Bentyl) 10 mg 1X ONCE IM Last administered on 06/20/17 12:37 ; Start 06/20/17 at 12:15; Stop 06/20/17 at 12:16; Status DC Ondansetron HCl (Zofran) 4 mg 1X ONCE IV Last administered on 06/20/17 12:36 ; Start 06/20/17 at 12:15; Stop 06/20/17 at 12:16; Status DC Iohexol (Omnipaque 300 Mg/ml) 75 ml 1X ONCE IV Last administered on 06/20/17 13:31; Start 06/20/17 at 12:30; Stop 06/20/17 at 12:31; Status DC Iohexol (Omnipaque 240 Mg/ml) 50 ml 1X ONCE PO Last administered on 06/20/17 12:30; Start 06/20/17 at 12:30; Stop 06/20/17 at 12:31; Status DC Info (Do NOT chart on this entry -- for MONITORING) 1 each PRN DAILY PRN MC SEE COMMENTS; Start 06/20/17 at 12:30; Stop 06/22/17 at 12:29 Ondansetron HCl (Zofran) 4 mg PRN Q8HRS PRN IV NAUSEA/VOMITING; Start 06/20/17 at 14:45; Stop 06/21/17 at 14:44 Sodium Chloride 1,000 ml @ 125 mls/hr Q8H IV Last administered on 06/21/17 10 :37; Start 06/20/17 at 14:37; Stop 06/21/17 at 14:36 Dicyclomine HCl (Bentyl) 10 mg QID PRN PO cramping Last administered on 11:58; Start 06/20/17 at 14:45 Metronidazole 100 ml @ 100 mls/hr Q8HRS IV Last administered on 06/21/17 04: 46; Start 06/20/17 at 22:00 Metronidazole 100 ml @ 100 mls/hr 1X ONCE IV Last administered on 06/20/17 15:03; Start 06/20/17 at 14:45; Stop 06/20/17 at 15:44; Status DC Simethicone (Gas-X) 80 mg PRN AFTMEALHC PRN PO GAS / BLOATING Last administered on 06/21/17 08:36; Start 06/20/17 at 22:00 Acetaminophen/ Hydrocodone Bitart (Lortab 5/325) 1 tab PRN Q4HRS PRN PO MODERATE PAIN Last administered on 06/21/17 11:59; Start 06/20/17 at 22:00 Vitals/I & O Vital Sign - Last 24 Hours 06/20/17 06/20/17 06/20/17 06/20/17 13:25 14:06 14:25 15:05 Pulse 92 96 93 92 Resp 20 B/P (MAP) 129/72 (91) 123/59 (80) 119/72 (88) 123/72 (89) Pulse Ox 97 97 96 O2 Delivery Room Air Room Air Room Air 06/20/17 06/20/17 06/20/17 06/20/17 15:25 19:00 19:54 23:00 Temp 97.7 98.6 97.7 98.6 Pulse 98 91 85 Resp 20 20 B/P (MAP) 129/73 (91) 112/62 (79) 107/59 (75) Pulse Ox 97 95 97 O2 Delivery Room Air Room Air Room Air Room Air 06/21/17 06/21/17 06/21/17 06/21/17 02:14 06:49 07:00 11:22 Temp 98.0 98.4 98.2 98.0 98.4 98.2 Pulse 72 78 85 Resp 18 18 18 20 B/P (MAP) 98/66 (77) 93/64 (74) 113/62 (79) Pulse Ox 97 97 96 94 O2 Delivery Room Air Room Air Room Air Room Air Intake and Output 06/20/17 06/20/17 06/21/17 15:00 23:00 07:00 Intake Total 1000 ml 1910 ml 510 ml Balance 1000 ml 1910 ml 510 ml MURPHY MERA MD Jun 21, 2017 13:00
[2017-06-21] MEDS: VANCOMYCIN 125 MG/2.5 ML ORAL SOLUTION. PO SCH ×3 (13:55→20:46)
[2017-06-21] MEDS: POTASSIUM CL 20MEQ D5-0.9%NACL 1,000 ML IV SCH (13:56)
[2017-06-21 14:45] VITALS: BP 122/73
[2017-06-21] MEDS: ENOXAPARIN 40 MG/0.4 ML SYRINGE. SQ SCH (16:00)
[2017-06-21] MEDS ORDERED: VANCOMYCIN 125 MG/2.5 ML ORAL SOLUTION. PO SCH (17:00)
[2017-06-21 19:00] VITALS: BP 119/67
[2017-06-21] MEDS: FAMOTIDINE 20 MG TABLET. PO SCH (20:46)
[2017-06-21 23:00] VITALS: BP 108/52
[2017-06-22] MEDS: HYDROcodone/APAP 5/325MG 1 TAB TABLET PO PRN (02:18)
[2017-06-22] MEDS: POTASSIUM CL 20MEQ D5-0.9%NACL 1,000 ML IV SCH ×2 (02:30→16:31)
[2017-06-22 06:48] LABS: BASO # 0.1 x10^3/uL (0.0-0.2); BASO % 1 % (0-3); EOS % 3 % (0-3); HEMATOCRIT 38.2 % (39.0-53.0); LYMPH # 1.2 x10^3/uL (1.0-4.8); LYMPH % 15 % (24-48); MEAN CORPUSCULAR HEMOGLOBIN 29 pg (25-35); MEAN CORPUSCULAR HGB CONC 34 g/dL (31-37); MEAN CORPUSCULAR VOLUME 86 fL (79-100); MONO % 10 % (0-9); NEUT % 71 % (31-73); PLATELET COUNT 284 x10^3/uL (140-400); RED BLOOD COUNT 4.44 x10^6/uL (4.30-5.70); RED CELL DISTRIBUTION WIDTH 12.4 % (11.5-14.5); WHITE BLOOD COUNT 8.3 x10^3/uL (4.0-11.0)
[2017-06-22 07:00] VITALS: BP 130/74
[2017-06-22 07:11] LABS: CALCIUM 8.5 mg/dL (8.5-10.1); CREATININE 0.6 mg/dL (0.7-1.3); GFR 140.4; POTASSIUM 3.5 mmol/L (3.5-5.1)
[2017-06-22] MEDS: VANCOMYCIN 125 MG/2.5 ML ORAL SOLUTION. PO SCH ×4 (08:19→22:09)
--- NOTE | 2017-06-22 10:56 | PDOC ---
Subjective: Subjective: Watery stools every 30 min - 2 hrs. Some lower abd discomfort. Tolerating full liquids. Curious when he can go home. Objective: Objective: D/w RN. Vital Signs: Vital Signs Date Time Temp Pulse Resp B/P (MAP) Pulse Ox O2 Delivery O2 Flow Rate FiO2 06/22/17 07:00 98.4 77 18 130/74 (92) 97 Room Air 98.4 Labs: Laboratory Tests Test 06/22/17 06:20 White Blood Count 8.3 x10^3/uL Red Blood Count 4.44 x10^6/uL Hemoglobin 13.0 g/dL Hematocrit 38.2 % Mean Corpuscular Volume 86 fL Mean Corpuscular Hemoglobin 29 pg Mean Corpuscular Hemoglobin Concent 34 g/dL Red Cell Distribution Width 12.4 % Platelet Count 284 x10^3/uL Neutrophils (%) (Auto) 71 % Lymphocytes (%) (Auto) 15 % Monocytes (%) (Auto) 10 % Eosinophils (%) (Auto) 3 % Basophils (%) (Auto) 1 % Neutrophils # (Auto) 5.9 x10^3uL Lymphocytes # (Auto) 1.2 x10^3/uL Monocytes # (Auto) 0.8 x10^3/uL Eosinophils # (Auto) 0.3 x10^3/uL Basophils # (Auto) 0.1 x10^3/uL Sodium Level 139 mmol/L Potassium Level 3.5 mmol/L Chloride Level 105 mmol/L Carbon Dioxide Level 26 mmol/L Anion Gap 8 Blood Urea Nitrogen 3 mg/dL Creatinine 0.6 mg/dL Estimated GFR (Cockcroft-Gault) 140.4 Glucose Level 141 mg/dL Calcium Level 8.5 mg/dL PE: GEN: NAD LUNGS: CTAB HEART: RRR ABD: NABS, S/ND/NT NEURO/PSYCH: A & O 3 A/P: C Diff, diarrhea, lower abd discomfort Leukocytosis - resolved -- Still w/ significant diarrhea. Continue PO vanc. JACQUI. TANVIR JOHNSON Jun 22, 2017 10:56
[2017-06-22 11:00] VITALS: BP 125/76
--- NOTE | 2017-06-22 13:32 | PDOC ---
PROGRESS NOTES Chief Complaint Chief Complaint Diarrhea, n/v, abd pain, need to rule out cdiff SIRS with Leukocytosis recent abx with dental work low albumin, no malnutrition plan: fu with gi add vanco on cipro, flagyl iv, consider dc soon ivf advance diet to gi soft as per gi labs tmr pain control gi , dvt ppx History of Present Illness History of Present Illness ROS: no fever, chills, sob or chest pain no N/V, abd pain still, but better cont abd pain, with non stop diarrhea, watery wbc better, cdiff + recent abx post dental work Vitals Vitals Vital Signs Date Time Temp Pulse Resp B/P (MAP) Pulse Ox O2 Delivery O2 Flow Rate FiO2 06/22/17 11:00 97.9 86 18 125/76 (92) 95 Room Air 97.9 Physical Exam General: Alert, Oriented X3, Cooperative Heart: Regular rate, Normal S1, Normal S2 Lungs: Clear Abdomen: Normal bowel sounds, Soft, Other (lower abd mild tenderness) Extremities: No clubbing, No cyanosis Skin: No rashes Labs LABS Laboratory Tests Test 06/22/17 06:20 White Blood Count 8.3 x10^3/uL (4.0-11.0) Red Blood Count 4.44 x10^6/uL (4.30-5.70) Hemoglobin 13.0 g/dL (13.0-17.5) Hematocrit 38.2 % (39.0-53.0) Mean Corpuscular Volume 86 fL (79-100) Mean Corpuscular Hemoglobin 29 pg (25-35) Mean Corpuscular Hemoglobin Concent 34 g/dL (31-37) Red Cell Distribution Width 12.4 % (11.5-14.5) Platelet Count 284 x10^3/uL (140-400) Neutrophils (%) (Auto) 71 % (31-73) Lymphocytes (%) (Auto) 15 % (24-48) Monocytes (%) (Auto) 10 % (0-9) Eosinophils (%) (Auto) 3 % (0-3) Basophils (%) (Auto) 1 % (0-3) Neutrophils # (Auto) 5.9 x10^3uL (1.8-7.7) Lymphocytes # (Auto) 1.2 x10^3/uL (1.0-4.8) Monocytes # (Auto) 0.8 x10^3/uL (0.0-1.1) Eosinophils # (Auto) 0.3 x10^3/uL (0.0-0.7) Basophils # (Auto) 0.1 x10^3/uL (0.0-0.2) Sodium Level 139 mmol/L (136-145) Potassium Level 3.5 mmol/L (3.5-5.1) Chloride Level 105 mmol/L (98-107) Carbon Dioxide Level 26 mmol/L (21-32) Anion Gap 8 (6-14) Blood Urea Nitrogen 3 mg/dL (8-26) Creatinine 0.6 mg/dL (0.7-1.3) Estimated GFR (Cockcroft-Gault) 140.4 Glucose Level 141 mg/dL (70-99) Calcium Level 8.5 mg/dL (8.5-10.1) Assessment and Plan Assessmemt and Plan Problems Medical Problems: (1) Abdominal pain Status: Acute Problems: Comment Review of Relevant I have reviewed the following items sharee (where applicable) has been applied. Labs Laboratory Tests Test 06/20/17 15:06 06/21/17 04:10 06/22/17 06:20 Clostridium difficile Toxin (PCR) Positive (Negative) White Blood Count 11.1 x10^3/uL (4.0-11.0) 8.3 x10^3/uL (4.0-11.0) Red Blood Count 4.53 x10^6/uL (4.30-5.70) 4.44 x10^6/uL (4.30-5.70) Hemoglobin 13.2 g/dL (13.0-17.5) 13.0 g/dL (13.0-17.5) Hematocrit 38.9 % (39.0-53.0) 38.2 % (39.0-53.0) Mean Corpuscular Volume 86 fL (79-100) 86 fL (79-100) Mean Corpuscular Hemoglobin 29 pg (25-35) 29 pg (25-35) Mean Corpuscular Hemoglobin Concent 34 g/dL (31-37) 34 g/dL (31-37) Red Cell Distribution Width 12.8 % (11.5-14.5) 12.4 % (11.5-14.5) Platelet Count 286 x10^3/uL (140-400) 284 x10^3/uL (140-400) Neutrophils (%) (Auto) 77 % (31-73) 71 % (31-73) Lymphocytes (%) (Auto) 9 % (24-48) 15 % (24-48) Monocytes (%) (Auto) 12 % (0-9) 10 % (0-9) Eosinophils (%) (Auto) 1 % (0-3) 3 % (0-3) Basophils (%) (Auto) 0 % (0-3) 1 % (0-3) Neutrophils # (Auto) 8.6 x10^3uL (1.8-7.7) 5.9 x10^3uL (1.8-7.7) Lymphocytes # (Auto) 1.0 x10^3/uL (1.0-4.8) 1.2 x10^3/uL (1.0-4.8) Monocytes # (Auto) 1.3 x10^3/uL (0.0-1.1) 0.8 x10^3/uL (0.0-1.1) Eosinophils # (Auto) 0.1 x10^3/uL (0.0-0.7) 0.3 x10^3/uL (0.0-0.7) Basophils # (Auto) 0.0 x10^3/uL (0.0-0.2) 0.1 x10^3/uL (0.0-0.2) Sodium Level 138 mmol/L (136-145) 139 mmol/L (136-145) Potassium Level 3.6 mmol/L (3.5-5.1) 3.5 mmol/L (3.5-5.1) Chloride Level 103 mmol/L (98-107) 105 mmol/L (98-107) Carbon Dioxide Level 25 mmol/L (21-32) 26 mmol/L (21-32) Anion Gap 10 (6-14) 8 (6-14) Blood Urea Nitrogen 9 mg/dL (8-26) 3 mg/dL (8-26) Creatinine 0.7 mg/dL (0.7-1.3) 0.6 mg/dL (0.7-1.3) Estimated GFR (Cockcroft-Gault) 117.5 140.4 Glucose Level 132 mg/dL (70-99) 141 mg/dL (70-99) Calcium Level 8.4 mg/dL (8.5-10.1) 8.5 mg/dL (8.5-10.1) Laboratory Tests Test 06/22/17 06:20 White Blood Count 8.3 x10^3/uL (4.0-11.0) Red Blood Count 4.44 x10^6/uL (4.30-5.70) Hemoglobin 13.0 g/dL (13.0-17.5) Hematocrit 38.2 % (39.0-53.0) Mean Corpuscular Volume 86 fL (79-100) Mean Corpuscular Hemoglobin 29 pg (25-35) Mean Corpuscular Hemoglobin Concent 34 g/dL (31-37) Red Cell Distribution Width 12.4 % (11.5-14.5) Platelet Count 284 x10^3/uL (140-400) Neutrophils (%) (Auto) 71 % (31-73) Lymphocytes (%) (Auto) 15 % (24-48) Monocytes (%) (Auto) 10 % (0-9) Eosinophils (%) (Auto) 3 % (0-3) Basophils (%) (Auto) 1 % (0-3) Neutrophils # (Auto) 5.9 x10^3uL (1.8-7.7) Lymphocytes # (Auto) 1.2 x10^3/uL (1.0-4.8) Monocytes # (Auto) 0.8 x10^3/uL (0.0-1.1) Eosinophils # (Auto) 0.3 x10^3/uL (0.0-0.7) Basophils # (Auto) 0.1 x10^3/uL (0.0-0.2) Sodium Level 139 mmol/L (136-145) Potassium Level 3.5 mmol/L (3.5-5.1) Chloride Level 105 mmol/L (98-107) Carbon Dioxide Level 26 mmol/L (21-32) Anion Gap 8 (6-14) Blood Urea Nitrogen 3 mg/dL (8-26) Creatinine 0.6 mg/dL (0.7-1.3) Estimated GFR (Cockcroft-Gault) 140.4 Glucose Level 141 mg/dL (70-99) Calcium Level 8.5 mg/dL (8.5-10.1) Medications Current Medications Sodium Chloride 1,000 ml @ 1,000 mls/hr 1X ONCE IV Last administered on 12:36; Start 06/20/17 at 12:15; Stop 06/20/17 at 13:14; Status DC Dicyclomine HCl (Bentyl) 10 mg 1X ONCE IM Last administered on 06/20/17 12:37 ; Start 06/20/17 at 12:15; Stop 06/20/17 at 12:16; Status DC Ondansetron HCl (Zofran) 4 mg 1X ONCE IV Last administered on 06/20/17 12:36 ; Start 06/20/17 at 12:15; Stop 06/20/17 at 12:16; Status DC Iohexol (Omnipaque 300 Mg/ml) 75 ml 1X ONCE IV Last administered on 06/20/17 13:31; Start 06/20/17 at 12:30; Stop 06/20/17 at 12:31; Status DC Iohexol (Omnipaque 240 Mg/ml) 50 ml 1X ONCE PO Last administered on 06/20/17 12:30; Start 06/20/17 at 12:30; Stop 06/20/17 at 12:31; Status DC Info (Do NOT chart on this entry -- for MONITORING) 1 each PRN DAILY PRN MC SEE COMMENTS; Start 06/20/17 at 12:30; Stop 06/22/17 at 12:29; Status DC Ondansetron HCl (Zofran) 4 mg PRN Q8HRS PRN IV NAUSEA/VOMITING; Start 06/20/17 at 14:45; Stop 06/21/17 at 14:44; Status DC Sodium Chloride 1,000 ml @ 125 mls/hr Q8H IV Last administered on 06/21/17 10 :37; Start 06/20/17 at 14:37; Stop 06/21/17 at 14:36; Status DC Dicyclomine HCl (Bentyl) 10 mg QID PRN PO cramping Last administered on 20:49; Start 06/20/17 at 14:45 Metronidazole 100 ml @ 100 mls/hr Q8HRS IV Last administered on 06/22/17 13: 05; Start 06/20/17 at 22:00 Metronidazole 100 ml @ 100 mls/hr 1X ONCE IV Last administered on 06/20/17 15:03; Start 06/20/17 at 14:45; Stop 06/20/17 at 15:44; Status DC Simethicone (Gas-X) 80 mg PRN AFTMEALHC PRN PO GAS / BLOATING Last administered on 06/21/17 20:48; Start 06/20/17 at 22:00 Acetaminophen/ Hydrocodone Bitart (Lortab 5/325) 1 tab PRN Q4HRS PRN PO MODERATE PAIN Last administered on 06/22/17 02:18; Start 06/20/17 at 22:00 Acetaminophen (Tylenol) 650 mg PRN Q6HRS PRN PO FEVER; Start 06/21/17 at 13:00 Ondansetron HCl (Zofran) 4 mg PRN Q6HRS PRN IV NAUSEA/VOMITING; Start 06/21/17 at 13:00 Morphine Sulfate 2 mg PRN Q2HR PRN IV PAIN; Start 06/21/17 at 13:00 Tramadol HCl (Ultram) 50 mg PRN Q6HRS PRN PO PAIN; Start 06/21/17 at 13:00 Hydralazine HCl (Apresoline) 10 mg PRN Q4HRS PRN IVP ELEVATED BP, SEE COMMENTS ; Start 06/21/17 at 13:00 Docusate Sodium (Colace) 100 mg PRN DAILY PRN PO CONSTIPATION; Start 06/21/17 at 13:00 Potassium Chloride/Dextrose/ Sod Cl 1,000 ml @ 75 mls/hr [id number] IV Last administered on 06/22/17 02:30; Start 06/21/17 at 13:00 Famotidine (Pepcid) 20 mg QHS PO Last administered on 06/21/17 20:46; Start at 21:00 Vancomycin HCl 125 mg [id number] PO Last administered on 06/22/17 13:04; Start at 13:00 Enoxaparin Sodium (Lovenox 40mg Syringe) 40 mg [id number] SQ ; Start 06/21/17 at 16 :00 Vancomycin HCl 125 mg [id number] PO ; Start 06/21/17 at 17:00; Status Cancel Vitals/I & O Vital Sign - Last 24 Hours 06/21/17 06/21/17 06/21/17 06/21/17 14:45 16:42 19:00 19:56 Temp 98.4 97.7 98.4 97.7 Pulse 88 86 Resp 18 20 B/P (MAP) 122/73 (89) 119/67 (84) Pulse Ox 95 95 O2 Delivery Room Air Room Air Room Air Room Air 06/21/17 06/21/17 06/22/17 06/22/17 20:47 23:00 02:18 03:18 Temp 98.1 98.1 Pulse 85 Resp 18 20 18 18 B/P (MAP) 108/52 (70) Pulse Ox 95 98 98 98 O2 Delivery Room Air Room Air Room Air Room Air 06/22/17 06/22/17 06/22/17 07:00 08:00 11:00 Temp 98.4 97.9 98.4 97.9 Pulse 77 86 Resp 18 18 B/P (MAP) 130/74 (92) 125/76 (92) Pulse Ox 97 95 O2 Delivery Room Air Room Air Room Air Intake and Output 06/21/17 06/21/17 06/22/17 15:00 23:00 07:00 Intake Total 1650 ml 1100 ml 720 ml Balance 1650 ml 1100 ml 720 ml MURPHY MERA MD Jun 22, 2017 13:32
[2017-06-22 15:01] VITALS: BP 127/71
[2017-06-22] MEDS: ENOXAPARIN 40 MG/0.4 ML SYRINGE. SQ SCH (16:00)
[2017-06-22 19:00] VITALS: BP 129/80
[2017-06-22] MEDS: FAMOTIDINE 20 MG TABLET. PO SCH (22:09)
[2017-06-22 23:10] VITALS: BP 117/78
[2017-06-23 03:00] VITALS: BP 103/78
[2017-06-23] MEDS: POTASSIUM CL 20MEQ D5-0.9%NACL 1,000 ML IV SCH (05:38)
[2017-06-23 07:00] VITALS: BP 119/73
[2017-06-23 07:40] LABS: BASO # 0.1 x10^3/uL (0.0-0.2); BASO % 1 % (0-3); EOS % 4 % (0-3); HEMATOCRIT 41.5 % (39.0-53.0); LYMPH # 1.4 x10^3/uL (1.0-4.8); LYMPH % 18 % (24-48); MEAN CORPUSCULAR HEMOGLOBIN 29 pg (25-35); MEAN CORPUSCULAR HGB CONC 34 g/dL (31-37); MEAN CORPUSCULAR VOLUME 87 fL (79-100); MONO % 10 % (0-9); NEUT % 68 % (31-73); PLATELET COUNT 324 x10^3/uL (140-400); RED BLOOD COUNT 4.78 x10^6/uL (4.30-5.70); RED CELL DISTRIBUTION WIDTH 12.7 % (11.5-14.5); WHITE BLOOD COUNT 7.7 x10^3/uL (4.0-11.0)
[2017-06-23 07:52] LABS: CALCIUM 8.7 mg/dL (8.5-10.1); CREATININE 0.8 mg/dL (0.7-1.3); GFR 100.7; POTASSIUM 3.7 mmol/L (3.5-5.1)
[2017-06-23] MEDS: VANCOMYCIN 125 MG/2.5 ML ORAL SOLUTION. PO SCH ×2 (08:45→13:30)
[2017-06-23 11:10] VITALS: BP 115/73
--- NOTE | 2017-06-23 11:49 | PDOC ---
Subjective: Subjective: Slept well, diarrhea much better, tolerating GI soft. Objective: Objective: D/w Dr. Uriostegui - DC today. Vital Signs: Vital Signs Date Time Temp Pulse Resp B/P (MAP) Pulse Ox O2 Delivery O2 Flow Rate FiO2 06/23/17 11:10 98.4 86 18 115/73 (87) 93 Room Air 98.4 Labs: Laboratory Tests Test 06/23/17 07:31 White Blood Count 7.7 x10^3/uL Red Blood Count 4.78 x10^6/uL Hemoglobin 14.0 g/dL Hematocrit 41.5 % Mean Corpuscular Volume 87 fL Mean Corpuscular Hemoglobin 29 pg Mean Corpuscular Hemoglobin Concent 34 g/dL Red Cell Distribution Width 12.7 % Platelet Count 324 x10^3/uL Neutrophils (%) (Auto) 68 % Lymphocytes (%) (Auto) 18 % Monocytes (%) (Auto) 10 % Eosinophils (%) (Auto) 4 % Basophils (%) (Auto) 1 % Neutrophils # (Auto) 5.2 x10^3uL Lymphocytes # (Auto) 1.4 x10^3/uL Monocytes # (Auto) 0.7 x10^3/uL Eosinophils # (Auto) 0.3 x10^3/uL Basophils # (Auto) 0.1 x10^3/uL Sodium Level 141 mmol/L Potassium Level 3.7 mmol/L Chloride Level 104 mmol/L Carbon Dioxide Level 29 mmol/L Anion Gap 8 Blood Urea Nitrogen 5 mg/dL Creatinine 0.8 mg/dL Estimated GFR (Cockcroft-Gault) 100.7 Glucose Level 125 mg/dL Calcium Level 8.7 mg/dL PE: GEN: NAD LUNGS: clear HEART: RRR ABD: S/ND/NT NEURO/PSYCH: A & O 3 A/P: C Diff Diarrhea, lower abd discomfort - improved -- DC per primary - okay per GI. Continue vanc x 2 weeks. Follow-up w/ Dr. Guzman for screening colonoscopy. TANVIR JOHNSON Jun 23, 2017 11:49
[2017-06-23] MEDS ORDERED: VANC125S PO (12:19)
--- NOTE | 2017-06-23 13:12 | PDOC3 ---
Discharge Summary [facility] Date of Admission: Jun 20, 2017 Discharge Date: Jun 23, 2017 Admitting Diagnosis Diarrhea, n/v, abd pain, cdiff colitis SIRS with Leukocytosis recent abx with dental work low albumin, no malnutrition Problems: Final Diagnosis CONSULTS GI Brief Hospital Course Mr. Aveyr is a 56 old M, recently got dental work and took some abx which he doesnot know, comes for n/v,abd pain, diarrhea. +Cdiff. better with vanco po. tolerate gi soft well, abd pain better, diarrhea much better. dc home with vanco po x10ds. dc time 35min Physical Exam General: Alert, Oriented X3, Cooperative Heart: Regular rate, Normal S1, Normal S2 Lungs: Clear Abdomen: Normal bowel sounds, Soft, Other (lower abd mild tenderness) Extremities: No clubbing, No cyanosis Skin: No rashes Patient History: FH: breast cancer 32 MOTHER FH: heart attack 33 FATHER FH: lupus 32 MOTHER FHx: diabetes mellitus G8 BROTHER 33 FATHER 32 MOTHER Problems: Disposition home CONDITION AT DISCHARGE: Improved Diet gi soft Scheduled Vancomycin HCl (Vancomycin HCl), 125 MG PO QID, (Reported) Follow Up gi in 2 weeks MURPHY MERA MD Jun 23, 2017 13:12
== END 2017-06-23 13:50 | disposition home or self-care (01) | DRG 372 ==
LOC: ER 11:16 → 5 NORTH 14:23
PROVIDERS: ADMIT Internal Medicine; ATTEND Internal Medicine
DX: A04.7 Enterocolitis due to Clostridium difficile (principal); J98.11 Atelectasis; R65.10 Systemic inflammatory response syndrome (SIRS) of non-infectious origin without acute organ dysfunction; K21.9 Gastro-esophageal reflux disease without esophagitis; K57.30 Diverticulosis of large intestine without perforation or abscess without bleeding; K64.9 Unspecified hemorrhoids; N40.0 Benign prostatic hyperplasia without lower urinary tract symptoms; N42.89 Other specified disorders of prostate; Z83.3 Family history of diabetes mellitus; Z80.3 Family history of malignant neoplasm of breast; Z84.89 Family history of other specified conditions; Z82.49 Family history of ischemic heart disease and other diseases of the circulatory system
CPT/HCPCS: 36415; 74177; 80048; 80053; 82274; 85007; 85025; 87045; 87324; 96361; 96372; 96374; J0500; J0744; J2405; J3490; J7030; Q9966; Q9967; 99285-25